=== PATIENT | female | born 1990 | race Two or more races ===

== ENCOUNTER 2023-07-01 09:23 | Observation (INO) | payer SELFPAY ==
[2023-07-01] MEDS ORDERED: NITR-52 PO (10:45)
[2023-07-01] MEDS ORDERED: PREN-96 PO (10:46)
== END 2023-07-01 10:59 | disposition home or self-care (01) ==
LOC: LDRP 09:23
PROVIDERS: ADMIT Obstetrics & Gynecology; ATTEND Obstetrics & Gynecology
DX: O23.42 Unspecified infection of urinary tract in pregnancy, second trimester (principal); O26.892 Other specified pregnancy related conditions, second trimester; N89.8 Other specified noninflammatory disorders of vagina; R10.11 Right upper quadrant pain; Z3A.24 24 weeks gestation of pregnancy
CPT/HCPCS: 59025; 81002; G0378

== ENCOUNTER 2023-08-16 18:25 | Observation (INO) | payer MEDICAID, OTHER ==
[~2023-08-16] VITALS: Ht 154.9 cm; Wt 47.2 kg
[~2023-08-16 18:25] MED LIST: NITR-52 PO; PREN-96 PO
[2023-08-16 20:07] VITALS: TEMP 99.9
[2023-08-16] MEDS: ACETAMINOPHEN 500 MG TAB PO ONE ×2 (20:07)
[2023-08-16] MEDS: ONDANSETRON HCL 4 MG/2 ML VIAL IV ONE (20:08)
[2023-08-16] MEDS: LACTATED RINGER'S 1,000 ML IV ONE (20:08)
[2023-08-16] MEDS: ONDANSETRON HCL 4 MG/2 ML VIAL ONE (20:09)
== END 2023-08-16 21:01 | disposition home or self-care (01) ==
LOC: LDRP 18:25
PROVIDERS: ADMIT Obstetrics & Gynecology; ATTEND Obstetrics & Gynecology
DX: O99.513 Diseases of the respiratory system complicating pregnancy, third trimester (principal); J06.9 Acute upper respiratory infection, unspecified; O26.893 Other specified pregnancy related conditions, third trimester; M79.10 Myalgia, unspecified site; R51.9 Headache, unspecified; Z3A.31 31 weeks gestation of pregnancy
CPT/HCPCS: 59025; 81002; 96361; 96374; G0378; J2405; 96360

== ENCOUNTER 2023-10-05 17:15 | Observation (INO) | payer MEDICAID | END 2023-10-05 19:24 | disposition home or self-care (01) | LOC: LDRP 17:15 | PROVIDERS: ADMIT Obstetrics & Gynecology; ATTEND Obstetrics & Gynecology | DX: O47.1 False labor at or after 37 completed weeks of gestation (principal); O26.893 Other specified pregnancy related conditions, third trimester; R10.9 Unspecified abdominal pain; Z3A.39 39 weeks gestation of pregnancy; Z98.891 History of uterine scar from previous surgery | CPT/HCPCS: 59025; 76815; 81002; 94760; G0378 ==

== ENCOUNTER 2023-10-06 09:50 | Observation (INO) | payer MEDICAID | END 2023-10-06 10:31 | disposition home or self-care (01) | LOC: LDRP 09:50 | PROVIDERS: ADMIT Obstetrics & Gynecology; ATTEND Obstetrics & Gynecology | DX: O62.9 Abnormality of forces of labor, unspecified (principal); O26.893 Other specified pregnancy related conditions, third trimester; R10.9 Unspecified abdominal pain; Z3A.39 39 weeks gestation of pregnancy | CPT/HCPCS: 59025; 81002; G0378 ==

== ENCOUNTER 2023-10-07 10:00 | Observation (INO) | payer MEDICAID | END 2023-10-07 12:18 | disposition home or self-care (01) | LOC: LDRP 10:00 | PROVIDERS: ADMIT Obstetrics & Gynecology; ATTEND Obstetrics & Gynecology | DX: O62.9 Abnormality of forces of labor, unspecified (principal); Z3A.39 39 weeks gestation of pregnancy; Z98.890 Other specified postprocedural states | CPT/HCPCS: 59025; 76818; 81002; 94760; G0378 ==

== ENCOUNTER 2023-10-09 17:00 | Observation (INO) | payer MEDICAID ==
[~2023-10-09] VITALS: Ht 154.9 cm; Wt 65.8 kg
== END 2023-10-09 19:43 | disposition home or self-care (01) ==
LOC: LDRP 17:00
PROVIDERS: ADMIT Obstetrics & Gynecology; ATTEND Obstetrics & Gynecology
DX: O47.9 False labor, unspecified (principal); Z3A.40 40 weeks gestation of pregnancy; Z98.891 History of uterine scar from previous surgery; Z79.899 Other long term (current) drug therapy
CPT/HCPCS: 59025; 76818; 81002; 94760; G0378

== ENCOUNTER 2023-10-10 04:58 | Inpatient (IN) | payer MEDICAID ==
[2023-10-09 19:38] LABS: Basophils # (auto) 0.1 10 ^3/uL (0-0.2); Basophils % (auto) 0.8 % (0.0-2.0); Eosinophils # (auto) 0.4 10 ^3/uL (0-0.8); Eosinophils % (auto) 3.5 % (0.0-7.0); Hematocrit 36.3 % (36.0-46.0); Hemoglobin 12.4 g/dL (12.2-16.2); Lymphocytes % (auto) 19.6 % (10.0-50.0); Mean Corpuscular Hemoglobin 30.5 pg (28.0-32.0); Mean Corpuscular Hgb Conc. 34.2 g/dL (32.0-36.0); Mean Corpuscular Volume 89.3 fL (80.0-100.0); Monocytes # (auto) 0.8 10 ^3/uL (0-1.3); Monocytes % (auto) 8.4 % (0.0-12.0); Neutrophils # (auto) 6.8 10 ^3/uL (1.6-8.6); Neutrophils % (auto) 67.7 % (37.0-80.0); Red Blood Cells 4.06 10^6/uL (4.0-5.20); Red Cell Distribution Width 14.3 % (11.8-14.3)
[2023-10-09 20:02] LABS: INR 0.95 (0.9-1.15); Partial Thromboplastin Time 25.3 SEC (24.5-34.5); Prothrombin Time 10.1 sec (9.3-11.8)
[2023-10-09 20:04] LABS: Alkaline Phosphatase 218 U/L (46-116); Anion Gap 7 (5-15); Aspartate Aminotransferase 12 U/L (13-40); BUN/Creatinine Ratio 9.2 (10.0-20.0); Bilirubin, Total 0.5 mg/dL (0.2-1.0); Blood Urea Nitrogen 6 mg/dL (9-23); Calcium 9.6 mg/dL (8.7-10.4); Carbon Dioxide 24 mmol/L (20-30); Chloride 107 mmol/L (98-107); Glucose 79 mg/dL (74-106); Potassium 3.6 mmol/L (3.5-5.1); Sodium 138 mmol/L (136-145); Total Protein 6.8 g/dL (5.7-8.2)
[2023-10-09 20:06] LABS: Alanine Aminotransferase < 9 U/L (7-40)
[2023-10-09 20:09] LABS: Urine Bacteria FEW /hpf (None Seen); Urine Blood Negative /uL (Negative); Urine Clarity Clear (Clear); Urine Protein, UAD Negative (Negative); Urine Specific Gravity 1.006 (1.001-1.035); Urine Urobilinogen Normal (Negative); Urine WBC 25 /hpf (0 - 5)
[2023-10-09 20:10] LABS: Urine Color Yellow (Yellow)
[2023-10-09 20:15] LABS: Amphetamine Screen, Urine Neg (NEGATIVE); Barbiturate Scree,Urine Neg (NEGATIVE); Benzodiazephine Screen, Urine Neg (NEGATIVE); Cannabinoid Screen, Urine Neg (NEGATIVE); Cocaine Screen, Urine Neg (NEGATIVE); Opiate Scree,Urine Neg (NEGATIVE); Phencyclidine Screen, Urine Neg (NEGATIVE)
[2023-10-09 20:28] LABS: Albumin 3.8 g/dL (3.2-4.8)
[2023-10-10] VITALS (16 sets, daily range): BP systolic 85–125; BP diastolic 46–77; PULSE 60–103; RESP 13–18; TEMP 97.9–99.7; O2SAT 99–100
[~2023-10-10] VITALS: Ht 165.1 cm; Wt 60.8 kg
[2023-10-10] MEDS: LACTATED RINGER'S 1,000 ML IV ONE (05:49)
[2023-10-10] MEDS: SUCCINYLCHOLINE CHLORIDE 20 MG/ML 10ML VIAL IV ONE (06:28)
[2023-10-10] MEDS: TETRACAINE 1% INJ 2 ML VIAL IJ ONE (06:28)
[2023-10-10] MEDS: DOXAPRAM HCL 20 MG/ML 20ML VIAL INJ IV ONE (06:28)
[2023-10-10] MEDS ORDERED: MORPHINE SULF PF 5 MG/10 ML VIAL ONE (06:31)
[2023-10-10] MEDS ORDERED: fentaNYL CITRATE 100 MCG/2 ML VL ONE (06:31)
[2023-10-10] MEDS ORDERED: EPINEPHrine HCL 1 MG/1 ML AMP ONE (06:31)
[2023-10-10] MEDS ORDERED: MIDAZOLAM HCL 2MG/2ML 2ml VIAL (1mg/ml) ONE (06:31)
[2023-10-10] MEDS ORDERED: BUPIVACAINE/DEXTROSE MPF 0.75% 2 ML AMP IT ONE (06:32)
[2023-10-10] MEDS ORDERED: oxyTOCIN 10 UNIT/ML 10ML VIAL ONE (06:32)
[2023-10-10] MEDS ORDERED: DexAMETHasone SOD PHOS 10MG/1ML VIAL INJ ONE (06:32)
[2023-10-10] MEDS ORDERED: SODIUM CHLORIDE LOCK 10 ML ONE (06:32)
[2023-10-10] MEDS ORDERED: ONDANSETRON HCL 4 MG/2 ML VIAL ONE (06:32)
[2023-10-10] MEDS: METOCLOPRAMIDE HCL 5MG/ml INJ 2ml VIAL IV ONE (06:45)
[2023-10-10] MEDS ORDERED: HYDROmorphone HCL 2 MG/ML VL/or syr IV PRN ×2 (06:45)
[2023-10-10] MEDS ORDERED: fentaNYL CITRATE 100 MCG/2 ML VL IV PRN (06:45)
[2023-10-10] MEDS: KETOROLAC TROMETH 30 MG/ML 1ML VIAL IV ONE (06:45)
[2023-10-10] MEDS ORDERED: MORPHINE SULFATE INJ 2 MG/ml SYRG IV PRN (06:45)
[2023-10-10] MEDS ORDERED: NALOXONE HCL 0.4 MG/ML VIAL IV PRN (06:45)
[2023-10-10] MEDS ORDERED: diphenhdrAMINE HCL 50 MG/1 ML VL IV PRN (06:45)
[2023-10-10] MEDS: LACT. RINGERS/OXYTOCIN 20UNITS 1,000 ML IV ONE (07:15)
[2023-10-10] MEDS ORDERED: MORPHINE SULFATE 4 MG/ML SYR/VIAL IV PRN (07:15)
[2023-10-10] MEDS: GUM (CHEWING) 1 GUM CHEW CHEW ONE (07:15)
[2023-10-10] MEDS ORDERED: ceFAZolin 1GM/50ML 50 ML IV SCH (07:15)
[2023-10-10] MEDS: CARBOPROST TROMETHAMINE 250 MCG/1ML VIAL IM ONE ×3 (07:34→08:06)
[2023-10-10] MEDS: TRANEXAMIC ACID 10 ML ONE (07:37)
[2023-10-10] MEDS: METHYLERGONOVINE MALEATE 0.2 MG/ML AMP IM ONE (07:38)
[2023-10-10] MEDS: DIPHENOXYLATE W/ATROPINE 2.5 MG TAB ONE (08:18)
[2023-10-10] MEDS: ceFAZolin 2 GM/D5W50ml 50 ML IV ONE (09:49)
[2023-10-10] MEDS: ONDANSETRON HCL 4 MG/2 ML VIAL IV PRN (11:46)
[2023-10-10] MEDS: LACTATED RINGER'S 1,000 ML IV SCH (12:44)
[2023-10-10] MEDS ORDERED: METOCLOPRAMIDE HCL 5MG/ml INJ 2ml VIAL IV ONE (13:47)
[2023-10-10] MEDS: ACETAMINOPHEN IV 1000 MG/100ML (10MG/ML) IV PRN (14:50)
[2023-10-10] MEDS: ceFAZolin 1GM/50ML 50 ML IV SCH (15:05)
[2023-10-10 22:11] LABS: Basophils # (auto) 0 10 ^3/uL (0-0.2); Eosinophils # (auto) 0 10 ^3/uL (0-0.8); Hematocrit 30.4 % (36.0-46.0); Hemoglobin 10.2 g/dL (12.2-16.2); Lymphocytes # (auto) 1.3 10 ^3/uL (0.4-5.4); Lymphocytes % (auto) 5.9 % (10.0-50.0); Mean Corpuscular Hemoglobin 29.9 pg (28.0-32.0); Mean Corpuscular Hgb Conc. 33.5 g/dL (32.0-36.0); Mean Corpuscular Volume 89.1 fL (80.0-100.0); Monocytes # (auto) 1.4 10 ^3/uL (0-1.3); Monocytes % (auto) 6.3 % (0.0-12.0); Neutrophils # (auto) 19.6 10 ^3/uL (1.6-8.6); Neutrophils % (auto) 87.8 % (37.0-80.0); Nucleated Red Blood Cells % 0.1 %; Red Blood Cells 3.41 10^6/uL (4.0-5.20); Red Cell Distribution Width 14.1 % (11.8-14.3); White Blood Cell 22.3 10^3/uL (4.4-10.8)
[2023-10-11] VITALS (12 sets, daily range): BP systolic 85–98; BP diastolic 48–70; PULSE 61–85; RESP 16–20; TEMP 97.5–99.1; O2SAT 95–100
[2023-10-11 06:33] LABS: Basophils # (auto) 0 10 ^3/uL (0-0.2); Basophils % (auto) 0.1 % (0.0-2.0); Eosinophils # (auto) 0 10 ^3/uL (0-0.8); Eosinophils % (auto) 0.3 % (0.0-7.0); Hematocrit 26.8 % (36.0-46.0); Hemoglobin 9.2 g/dL (12.2-16.2); Lymphocytes % (auto) 11.6 % (10.0-50.0); Mean Corpuscular Hemoglobin 30.7 pg (28.0-32.0); Mean Corpuscular Hgb Conc. 34.4 g/dL (32.0-36.0); Mean Corpuscular Volume 89.2 fL (80.0-100.0); Monocytes # (auto) 1.3 10 ^3/uL (0-1.3); Monocytes % (auto) 7.5 % (0.0-12.0); Neutrophils # (auto) 14.2 10 ^3/uL (1.6-8.6); Neutrophils % (auto) 80.5 % (37.0-80.0); Red Cell Distribution Width 14.2 % (11.8-14.3); White Blood Cell 17.6 10^3/uL (4.4-10.8)
[2023-10-11] MEDS ORDERED: HYDROcodone-ACET 5/325MG TAB PO PRN (06:45)
[2023-10-11] MEDS ORDERED: BISACODYL 10 MG RECT SUPP PR PRN (06:45)
[2023-10-11] MEDS: HYDROcodone-ACET 5/325MG TAB PO PRN (07:02)
[2023-10-11] MEDS: DOCUSATE CALCIUM 240 MG CAP PO SCH (10:15)
[2023-10-11] MEDS: DOCUSATE SOD 100 MG CAP PO SCH (10:15)
[2023-10-11] MEDS: IBUPROFEN 800 MG TAB PO PRN (10:18)
[2023-10-11] MEDS: SIMETHICONE 80 MG CHEWABLE TABLET PO SCH (12:46)
[2023-10-12 03:00] VITALS: BP 91/59; PULSE 88; RESP 20; TEMP 98.5
[2023-10-12 07:16] VITALS: BP 97/67; PULSE 83; RESP 17; TEMP 98.4
[2023-10-12] MEDS ORDERED: HYDR-4902 PO (07:19)
[2023-10-12] MEDS ORDERED: DOCU-94 PO (07:19)
[2023-10-12] MEDS ORDERED: IBUP-1456 PO (07:19)
[2023-10-18 12:46] LABS: RPR Non Reactive (Non Reactive)
== END 2023-10-12 09:56 | disposition home or self-care (01) | DRG 540 ==
LOC: LDRP 04:58
PROVIDERS: ADMIT Obstetrics & Gynecology; ATTEND Obstetrics & Gynecology
PROC: 10D00Z1 Extraction of Products of Conception, Low, Open Approach (ICD-10-PCS; principal; 2023-10-10 07:02)
DX: O48.0 Post-term pregnancy (principal); R71.0 Precipitous drop in hematocrit; O34.211 Maternal care for low transverse scar from previous cesarean delivery; Z37.0 Single live birth; Z3A.40 40 weeks gestation of pregnancy; O69.81X0 Labor and delivery complicated by cord around neck, without compression, not applicable or unspecified; O62.2 Other uterine inertia
CPT/HCPCS: 36415; 59025; 80053; 80307; 81001; 85025; 85610; 85730; 86592; 86803; 86850; 86900; 86901; 94760; 94762; 96360; 96361; 96366; 96374; G0378; J0131; J0171; J0330; J1100; J2250; J2405; J2590

== ENCOUNTER 2024-08-26 11:29 | Outpatient (CLI) | payer MEDICAID ==
[~2024-08-26 11:29] MED LIST changes: +DOCU-94 PO; +HYDR-4902 PO; +IBUP-1456 PO
[2024-08-26 12:13] LABS: Basophils # (auto) 0.1 10 ^3/uL (0-0.2); Basophils % (auto) 1.3 % (0.0-2.0); Eosinophils # (auto) 0.5 10 ^3/uL (0-0.8); Eosinophils % (auto) 7.2 % (0.0-7.0); Hematocrit 40.4 % (36.0-46.0); Hemoglobin 13.8 g/dL (12.2-16.2); Lymphocytes % (auto) 31.1 % (10.0-50.0); Mean Corpuscular Hemoglobin 30.2 pg (28.0-32.0); Mean Corpuscular Volume 88.7 fL (80.0-100.0); Monocytes # (auto) 0.4 10 ^3/uL (0-1.3); Monocytes % (auto) 6.4 % (0.0-12.0); Neutrophils # (auto) 3.5 10 ^3/uL (1.6-8.6); Platelet Count (auto) 283 10^3/uL (140-450); Red Blood Cells 4.56 10^6/uL (4.0-5.20); Red Cell Distribution Width 12.5 % (11.8-14.3); White Blood Cell 6.5 10^3/uL (4.4-10.8)
[2024-08-26 12:38] LABS: Albumin 4.5 g/dL (3.2-4.8); Alkaline Phosphatase 60 U/L (46-116); Anion Gap 10 (5-15); Aspartate Aminotransferase 16 U/L (<34); BUN/Creatinine Ratio 15.1 (10.0-20.0); Blood Urea Nitrogen 11 mg/dL (9-23); Calcium 10.1 mg/dL (8.7-10.4); Carbon Dioxide 25 mmol/L (20-31); Cholesterol 171 mg/dL (< 200); Glucose 75 mg/dL (74-106); Potassium 4.1 mmol/L (3.5-5.1); Sodium 142 mmol/L (136-145); Total Protein 7.7 g/dL (5.7-8.2); Triglycerides 72 mg/dL (< 150)
[2024-08-26 12:39] LABS: Amphetamine Screen, Urine Neg (NEGATIVE); Barbiturate Scree,Urine Neg (NEGATIVE); Benzodiazephine Screen, Urine Neg (NEGATIVE); Bilirubin, Total 0.5 mg/dL (0.2-1.0); Cannabinoid Screen, Urine Neg (NEGATIVE); Cocaine Screen, Urine Neg (NEGATIVE); HDL Cholesterol 49 mg/dL (40-59); Opiate Scree,Urine Neg (NEGATIVE); Phencyclidine Screen, Urine Neg (NEGATIVE)
[2024-08-26 12:42] LABS: Alanine Aminotransferase < 9 U/L (7-40); Chloride 107 mmol/L (98-107); LDL Cholesterol 121 mg/dL (< 100)
[2024-08-26 14:31] LABS: Hepatitis A Total Antibody Positive (Negative); Hepatitis B Core Total AB Negative (Negative); Hepatitis B Surface Antibody Negative (Negative); Hepatitis B Surface Antigen Negative (Negative); Hepatitis C Antibody Negative (Negative)
== END 2024-08-26 17:00 | disposition home or self-care (01) ==
LOC: LAB 11:29
PROVIDERS: ATTEND Licensed Practical Nurse
DX: E55.9 Vitamin D deficiency, unspecified (principal); Z13.1 Encounter for screening for diabetes mellitus; Z13.6 Encounter for screening for cardiovascular disorders; Z11.3 Encounter for screening for infections with a predominantly sexual mode of transmission; Z13.29 Encounter for screening for other suspected endocrine disorder; Z00.01 Encounter for general adult medical examination with abnormal findings
CPT/HCPCS: 36415; 80053; 80061; 80307; 82043; 82306; 82728; 83036; 84443; 85025; 86703; 86704; 86706; 86708; 86780; 86803; 87340

== ENCOUNTER 2024-09-03 07:48 | Emergency (ER) | payer MEDICAID ==
[~2024-09-03] VITALS: Ht 162.6 cm; Wt 49.0 kg
--- NOTE | 2024-09-03 08:08 | ED.PDOC ---
Eye-HPI HPI Comments 34 year old female with no past medical history presents to the ED with a chief compliant of LT eye pain onset 1 day. Patient states she was applying false eyelashes, got lash glue inside LT eye, since then has been experiencing LT eye discomfort with gritty sensation to the upper eyelid. Patient has tried rinsing eye, applying warm compress with no relief of symptoms. She tried applying Ciprofloxacin drops, no relief. No other symptoms or modifying factors present at this time. Denies vision changes Denies hearing changes, nausea, vomiting Denies dizziness headache Chief Complaint: Eye Problem Time Seen by MD: 08:07 Reviewed Notes: Nurses Notes, Medications, Allergies Allergies: Coded Allergies: NO KNOWN ALLERGIES (Unverified , 08/16/23) Home Meds Active Scripts Ketorolac Tromethamine (Ophth) (Ketorolac Tromethamine) 0.5 % Mary, 1 DROP LEFTE YE QID for 2 Days, #5 ML 0 Refills Prov:SERGIO RUIZ STAMPING OPERATOR 09/03/24 Erythromycin (Erythromycin) 5 Mg/Gm Oin, 1 APPLIC OP TID for 7 Days, #3.5 GRAMS 0 Refills Prov:SERGIO RUIZ STAMPING OPERATOR 09/03/24 Ibuprofen (Ibuprofen) 800 Mg Tab, 800 MG PO TID PRN for 4 Days, #12 TAB Prov:FILIBERTO RAE DO 10/12/23 Hydrocodone-Acetaminophen (Hydrocodone Bitartrate/AC 5-325 mg) 1 Tab Tab, 1 TAB PO Q6HPRN PRN for 7 Days, #28 TAB Prov:FILIBERTO RAE DO 10/12/23 Docusate Sodium (Colace) 100 Mg Cap, 1 CAP PO BID, #60 CAP 2 Refills Prov:FILIBERTO RAE 10/12/23 Reported Medications Vit W/ Ferrous Fumara ( One Daily) Daily Tab, 1 TAB PO DAILY, #90 TAB 3 Refills 07/01/23 Nitrofurantoin (Nitrofurantoin) 100 Mg Cap, 100 MG PO BID for 7 Days, CAP 07/01/23 Information Source: Patient Mode of Arrival: Ambulatory Past Medical History PAST MEDICAL HISTORY: Denies Surgical History: CONSULTING SENIOR PRACTICE DIRECTOR History: No Pertinent CONSULTING SENIOR PRACTICE DIRECTOR History Family History Family History: Reviewed,noncontributory to illness, No family hx of Cancer, No family hx of DM, No family hx of Heart jelena, No family hx of HTN, No family hx ofKidney jelena, No family hx of Liver jelena, No family hx of Lung jelena, No family hx of Stroke Social History Smoker: Non-Smoker Alcohol: Denies ETOH Use Drugs: Denies Drug Use Lives In: Home All Other Systems: Reviewed and Negative (as per HPI) Physical Exam General Appearance: Normal HEENT: Pharynx Normal, TMs Normal, Other (no STS, no erythema or swelling to oribital rim, no FB visualized with upper and lower lid inversion. Noticable LT Conjuctivital injection. EOMS intact. PERRLA) Neck: Full Range of Motion, Non-Tender, Normal, Normal Inspection Respiratory: Chest Non-Tender, Lungs Clear, No Accessory Muscle Use, No Respiratory Distress, Normal Breath Sounds Cardiovascular: No Edema, No JVD, No Murmur, No Gallop, Normal Peripheral Pulses, Regular Rate/Rhythm Breast Exam: Deferred Gastrointestinal: No Organomegaly, Non Tender, No Pulsatile Mass, Normal Bowel Sounds, Soft Genitalia: Deferred Pelvic: Deferred Rectal: Deferred Extremities: No calf tenderness, Normal capillary refill, Normal inspection, Normal range of motion, Non-tender, No pedal edema Musculoskeletal : Apperance: Normal Neurologic: Alert, heating mechanic II-XII nml as Tested, No Motor Deficits, Normal Affect, Normal Mood, No Sensory Deficits Cerebellar Function: Normal Reflexes: Normal Skin: Dry, Normal Color, Warm Lymphatic: No Adenopathy Was a procedure done? Was a procedure done?: No EENT DIFF Eye: Conjunctivitis, Allergic, Bacterial, Viral, Foreign Body-Lid, Iritis/Uveitis X-Ray, Labs, Meds, VS Vital Signs Date Time Temp Pulse Resp B/P (MAP) Pulse Ox O2 Delivery O2 Flow Rate FiO2 09/03/24 08:30 98.0 65 17 98/69 (79) 97 98.0 09/03/24 08:30 65 17 97 Room Air 09/03/24 07:58 97.9 88 18 100/82 (88) 96 97.9 Current Medications Medications (Trade) Dose Ordered Sig/Silver Route Start Time Stop Time Status Last Admin Sodium Chloride 500 ml @ 500 mls/hr Q1H ONCE IV 09/03/24 08:15 09/03/24 09:14 DC 09/03/24 08:15 X-Ray, Labs, Meds, VS Comment 34 year old female with no past medical history presents to the ED with a chief compliant of LT eye pain onset 1 day. Patient arrives alert and oriented, ABC's intact, afebrile, vital signs stable, saturating well in room air The Pt presents with eyepain likely due to a corneal abrasion versus foreign body versus other cause of eye irritation. No history of discharge so less likely bacterial or viral conjunctivitis. No photophobia. The Pt is otherwise well-appearing without evidence of retained foreign body, corneal ulcer, globe rupture, or superimposed infection. Prescribed antibiotics prophylactically and instructed the Pt to follow up closely with ophthalmology No foreign body sensation or FB on exam so doubt corneal abrasion/ulcer. No recent eye trauma or suspected microtrauma with no signs of inflammation or injection with no significant photophobia so doubt, uveitis, endophthalmitis, HSV keratitis. History, physical, and work up with low suspicion for temporal arteritis, optic neuritis, complex migraine, or stroke Patient was given: Tetracaine with instant relief. Chinmay lens ordered and patient received 200 cc of NS 0.9 % to irrigate the affected eye. Tolerated medications with no adverse reaction. On reevaluation, patient had symptomatic improvement. Patient is stable for discharge at this time. External notes reviewed. Test results and diagnostic imaging interpreted. All diagnostic findings, discharge care, education and instructions provided Follow-up with PCP in 2 to 3 days Patient verbalized understanding and agreed to treatment plan Vital signs stable, afebrile, no acute distress noted Patient ambulatory with strong steady gait Advised to return precautions for any new or worsening symptoms, return to ER immediately for re-evaluation Patient is aware that the purpose of this visit was for an acute medical emergency requiring emergent stabilization. Chronic conditions, including malignancies have not been ruled out. Patient is instructed to follow up with PCP as directed and discharge instructions for continued care and workup. If unable to arrange follow-up, patient is to return to the emergency department for reassessment. Patient (parent or legal guardian if applicable) was given verbal and written discharge instructions and acknowledges understanding. Additional MDM Review of External, Non-ED records: External records reviewed. Discussion with independent historian (EMS, family) history obtained from the patient/parents (if applicable) at bedside Chronic conditions affecting care: None Social determinants of health affecting care: None Consideration of admission (observation or admission): I considered escalation of care to admission for this patient, however given the reassuring workup, the patient is safe for outpatient management. Time of 1ST Reevaluation: 08:37 Reevaluation 1ST: Improved Patient Education/Counseling: Diagnosis, Treatment Family Education/Counseling: No Family Present SEPSIS Sepsis Screen Date sepsis recognized/suspect: Sep 03, 2024 Time Sepsis recognized/suspect: 075 Recent Procedure: No On Antibiotic Therapy: No Respiratory Rate >20: No Heart Rate >90: No Temp<36 C (96.8 F) or >38.3 C: No SBP <90 or MAP <65 mmHG: No New Acute Mental Status Change: No Is the patient on CPAP, BIPAP,: No Physician Orders Chinmay Lens (09/03/24 ) Visual Acuity (09/03/24 ) Vital Signs Date Time Temp Pulse Resp B/P (MAP) Pulse Ox O2 Delivery O2 Flow Rate FiO2 09/03/24 08:30 98.0 65 17 98/69 (79) 97 98.0 09/03/24 08:30 65 17 97 Room Air 09/03/24 07:58 97.9 88 18 100/82 (88) 96 97.9 Departure 1 Departure Time of Disposition: 09:38 Impression: Primary Impression: Chemical exposure of eye Disposition: 01 HOME / SELF CARE / HOMELESS Condition: Stable e-Prescriptions Ketorolac Tromethamine (Ophth) (Ketorolac Tromethamine) 0.5 % Mary 1 DROP LEFTEYE QID for 2 Days, #5 ML 0 Refills Prov: SERGIO RUIZ STAMPING OPERATOR 09/03/24 Erythromycin (Erythromycin) 5 Mg/Gm Oin 1 APPLIC OP TID for 7 Days, #3.5 GRAMS 0 Refills Prov: SERGIO RUIZ STAMPING OPERATOR 09/03/24 Critical Care Note Critical Care Time?: No Stability Stability form required: No Heart Score Heart Score: Heart Score Response (Comments) Value History N/A 0 EKG N/A 0 Age N/A 0 Risk Factors N/A 0 Troponin N/A 0 Total 0 I personally scribed for SERGIO RUIZ NP ([email or web address]) on 09/03/24 at 08:16. Electronically submitted by Janeen Rose ([email or web address]). I personally scribed for SERGIO RUIZ NP ([email or web address]) on 09/03/24 at 08:27. Electronically submitted by Janeen Rose ([email or web address]). I personally scribed for SERGIO RUIZ NP ([email or web address]) on 09/03/24 at 09:22. Electronically submitted by Janeen Rose ([email or web address]). SERGIO RUIZ NP Sep 03, 2024 08:08
[2024-09-03] MEDS: SODIUM CHLORIDE 0.9% 500 ML IV ONE (08:15)
[2024-09-03 08:30] VITALS: BP 98/69; PULSE 65; RESP 17; TEMP 98; O2SAT 97
[2024-09-03] MEDS: TETRACAINE 1% INJ 2 ML VIAL IJ ONE (08:37)
[2024-09-03] MEDS ORDERED: KETO0.5S31 LEFTEYE (09:38)
[2024-09-03] MEDS ORDERED: ERY05OO OP (09:38)
== END 2024-09-03 09:48 | disposition home or self-care (01) ==
LOC: ER 07:48
DX: H57.12 Ocular pain, left eye (principal); Z77.098 Contact with and (suspected) exposure to other hazardous, chiefly nonmedicinal, chemicals; Z79.899 Other long term (current) drug therapy; Z98.890 Other specified postprocedural states
CPT/HCPCS: 96360; 99283; J7040